=== PATIENT | female | born 1975 | race Caucasian/White ===

== ENCOUNTER 2017-07-09 07:48 | Inpatient (IN) | payer BC ==
--- NOTE | 2017-07-09 08:23 | RAD ---
AP CHEST: History: Chest pain. Comparison: None. FINDINGS: Lungs are clear. Cardiomediastinal silhouette is normal. No acute osseous abnormality is evident. IMPRESSION: No acute cardiopulmonary abnormality. POS: [facility]
[2017-07-09 08:26] LABS: #Basophils 0.1 thou/uL (0.0-0.2); #Eosinphils 0.4 thou/uL (0.0-0.7); #Lymphocytes 2.5 thou/uL (1.20-3.40); #Monocytes 0.5 thou/uL (0.11-0.59); #Neutrophils 4.6 thou/uL (1.40-6.50); %Basophils 1.7 % (0.0-1.0); %Eosinophils 5.2 % (0.0-10.0); %Lymphocytes 30.9 % (21.0-51.0); %Monocytes 6.5 % (0.0-10.0); %Neutrophils 55.7 % (42.0-75.0); Hemoglobin 14.1 g/dL (12.0-16.0); Mean Corpuscular HGB CONC 33.2 g/dL (32.0-36.0); Mean Corpuscular Hemoglobin 29.3 pg (27.0-31.0); Mean Corpuscular Volume 88.1 fl (81.0-99.0); Mean Platelet Volume 7.6 fL (7.4-10.4); Platelet Count 276 thou/uL (130-400); Red Blood Cell (RBC) Count 4.82 mill/uL (4.20-5.40); White Blood Cell (WBC) Count 8.2 thou/uL (4.8-10.8)
[2017-07-09 08:27] LABS: PTT 26.8 SEC (22.9-36.1); Prothrombin Time 12.9 SEC (12.0-14.7)
[2017-07-09 08:48] LABS: ALT (SGPT) 13 U/L (8-55); AST (SGOT) 10 U/L (5-34); Albumin 4.3 g/dL (3.5-5.0); Alkaline Phosphatase 47 U/L (40-150); Anion Gap 13 mmol/L (10-20); BUN (Urea Nitrogen) 15 mg/dL (7.0-18.7); Bilirubin, Total 0.5 mg/dL (0.2-1.2); CK (CPK) 69 U/L (29-168); Calc. Creatinine Clearance 0 mL/min (70-130); Calcium 9.5 mg/dL (7.8-10.44); Carbon Dioxide 23 mmol/L (22-29); Chloride 104 mmol/L (98-107); Estimated GFR-MDRD 82; Globulin 2.8 g/dL (2.4-3.5); Glucose 99 mg/dL (70-105); Lipase 14 U/L (8-78); Potassium 4.2 mmol/L (3.5-5.1); Protein, Total 7.1 g/dL (6.0-8.3); Sodium 136 mmol/L (136-145)
[2017-07-09 08:52] LABS: CKMB 0.5 ng/mL (0-6.6); Troponin I Less than 0.010 ng/mL (< 0.028)
[2017-07-09 11:54] LABS: Troponin I Less than 0.010 ng/mL (< 0.028)
--- NOTE | 2017-07-09 12:27 | HP ---
PRIMARY CARE PHYSICIAN: The patient is periodically following Dr. Aurelio Whitlock if needed. REASON FOR ADMISSION: Chest pain. HISTORY OF PRESENT ILLNESS: A 41-year-old female who has underlying history of coronary artery disea se. She was experiencing for the last 2-3 days indigestion that was keep getting during night time a fter food. She needs to burp and she was feeling heartburn sensation in her substernal area. She wa s taking over the counter medication without any significant relief. Last night, she was experiencin g similar symptoms, but when she woke up at that time she was feeling discomfort in between the shoul kaylene blades and subsequently when she was getting ready for work, she also experienced discomfort arou nd collarbone and left shoulder and that is why she was concerned about it and decided to come to the emergency room for evaluation. Initially, she went to work but as her symptoms continued to worsen that is why she was sent to the ER. The patient feels mild shortness of breath which is unusual for her. She denies any associated nause a, vomiting, dyspnea, dizziness, orthopnea, PND or leg swelling. She denies any exertion related sym ptoms. She describes intensity of current symptoms is about 4/10. The patient did not notice any aggravating or relieving factor. She denies any flu-like illness. Sh e denies any fever or chills. She denies any constipation, melena, hematochezia, abdominal pain, diarrhea, or UTI symptoms. ALLERGIES: No known drug allergies. CURRENT HOME MEDICATIONS: Unfortunately, the patient did not bring any medications with her at this point and she does not know which medicines she is currently taking so unable to review at this point , but we will review later on. REVIEW OF SYSTEMS: Please see my HPI for pertinent positives and negatives. All other review of sys tems reviewed and negative except as mentioned in the HPI. Constitutional: Weight loss or gain, ability to conduct usual activities. Skin: Rash, itching. Eyes: Double vision, pain. ENT/Mouth: Nose bleeding, neck stiffness, pain, tenderness. Cardiovascular: Palpitations, dyspnea on exertion, orthopnea. Respiratory: Shortness of breath, wheezing, cough, hemoptysis, fever or night sweats. Gastrointestinal: Poor appetite, abdominal pain, heartburn, nausea, vomiting, constipation, or diarrhea. Genitourinary: Urgency, frequency, dysuria, nocturia. Musculoskeletal: Pain, swelling. Neurologic/Psychiatric: Anxiety, depression. Allergy/Immunologic: Skin rash, bleeding tendency. PAST MEDICAL HISTORY: Morbid obesity, coronary artery disease, history of AR, hypertension, dyslipid emia. PAST PSYCHIATRIC HISTORY: Anxiety and depression. PAST SURGICAL HISTORY: D&C x2, cardiac catheterization with stent placement, bilateral ACL repair. FAMILY HISTORY: No strong family history of premature coronary artery disease, stroke or cancer. SOCIAL HISTORY: The patient lives at home. She is working. She denies any tobacco, alcohol or illi cit drug abuse. EMERGENCY ROOM COURSE: The patient is given aspirin 324 mg. PHYSICAL EXAMINATION: VITAL SIGNS: On arrival, blood pressure 169/110, pulse 93, respiratory rate 20, temperature 98.5, sa turation 100% on room air, weight 114.3 kilograms. GENERAL: The patient is currently alert, awake, no acute distress. HEAD: Normocephalic, atraumatic. EYES: Pupils round, reactive to light. Extraocular muscles intact. ENT: Oropharynx within normal limits. Moist mucous membranes. No oral lesions. No pharyngeal eryt kimi, no exudate. NECK: Supple, no JVD, no thyromegaly, no carotid bruit, no jugular venous distention. LUNGS: Clear to auscultation without any rhonchi or rales. CARDIAC: S1, S2 regular without any murmur. ABDOMEN: Obesity present. Bowel sounds present. Nontender, nondistended. No organomegaly, no mass , no suprapubic tenderness. BACK: Unremarkable, no CVA tenderness. EXTREMITIES: Upper extremity: Passive movements of all joints are normal. Lower extremities: No e jacques. Good peripheral pulsation. No calf tenderness. SKIN: No skin rash. HEMATOLOGIC: No lymphadenopathy. PSYCHIATRIC: Normal affect. NEUROLOGIC: Nonfocal examination. The patient moves all 4 limbs. Plantar bilateral flexor. PSYCHIATRIC: Normal affect. SIGNIFICANT LABORATORY DATA: EKG showing sinus tachycardia, LVH. Chest x-ray based on my review, no acute cardiopulmonary process. CBC: WBC 8.2, hemoglobin 14.1, pl atelet 276. INR 1.0, lipase 14, CK 69. Sodium 136, potassium 4.2, chloride 104, carbon dioxide 23, anion gap 13, BUN 15, creatinine 0.78, glucose 99, calcium 9.5. LFT: Protein 7.1, albumin 4.3, alkaline phosphatase 47, AST 15, ALT 13, CK-MB 0.5, troponin I less t johnson 0.010. ASSESSMENT AND PLAN: 1. Chest pain. The patient's chest pain description is atypical, most likely pointing towards a GI etiology rather than cardiac etiology. Her EKG is currently unremarkable and her cardiac enzymes are also negative. At this point, we will do 2 more cardiac enzymes and if cardiac enzymes continue to be negative, then we will try to do stress test. Given her obesity, we will try to do resting part t marc and stress for tomorrow. We will check lipid profile tomorrow morning. Meanwhile, we will cont inue with nitropatch q.8 hourly, aspirin 325 mg p.o. daily. We will monitor on telemetry floor for a ny arrhythmias. 2. Coronary artery disease. This patient has cardiac catheterization done by Dr. Doran in 2014 a nd showed 3 three-vessel coronary artery disease with systolic dysfunction. We will try to obtain al l her home medication and resume while in hospital as well. Currently, the patient will be on aspiri n and nitropatch q.8 hourly. We will check lipid profile for risk stratification. 3. Hypertension. As mentioned above, we will obtain her home medication and restart while in hospit al, currently on nitropatch and we will use p.r.n. hydralazine. 4. Dyslipidemia. Continue Lipitor 40 mg p.o. at bedtime and check lipid profile tomorrow morning. 5. Anxiety and depression. We will obtain the patient's home medication and restart while in hospit al. 6. Morbid rest, dietary education given, weight loss education given. Healthy lifestyle measures di scussed with the patient. 7. Deep venous thrombosis prophylaxis not needed because we are expecting discharge in 24 hours. 8. Gastrointestinal prophylaxis, Pepcid 20 mg p.o. b.i.d. 9. Code status: The patient is FULL CODE. The patient does not have any surrogate decision maker. Disposition plan based on stress test results likely within 24 hours. Plan of care discussed with th e patient in detail.
[2017-07-09] MEDS ORDERED: Ondansetron HCl/PF 4 MG/2 ML Vial IVP PRN (12:41)
[2017-07-09] MEDS ORDERED: Loperamide HCl 2 MG CAP PO PRN (12:41)
[2017-07-09] MEDS ORDERED: Senokot 8.6 MG TAB PO PRN (12:41)
[2017-07-09] MEDS ORDERED: Ondansetron ODT 4 MG TAB PO PRN (12:41)
[2017-07-09] MEDS ORDERED: Diabetic Tussin 200 MG/10 ML UDCUP PO PRN (12:41)
[2017-07-09] MEDS ORDERED: Nitroglycerin 0.4 MG TAB (25 Tab Bottle) SL PRN (12:41)
[2017-07-09] MEDS ORDERED: Chloraseptic Spray 180 ml Bottle PO PRN (12:41)
[2017-07-09] MEDS ORDERED: Eucerin (Mineral Oil/Petrolatum,White) 30 gm Jar TOP PRN (12:41)
[2017-07-09] MEDS ORDERED: hydrALAZINE 20 MG/ML VIAL SLOW IVP PRN (12:41)
[2017-07-09] MEDS ORDERED: Artificial Tears 18 DROP/0.9 ML EA EYE PRN (12:41)
[2017-07-09] MEDS ORDERED: Milk Of Magnesia 30 ML UDCUP PO PRN (12:41)
[2017-07-09] MEDS ORDERED: Sodium Chloride 0.65% Nasal 44 ML BOT EA NARE PRN (12:41)
[2017-07-09] MEDS ORDERED: Acetaminophen 325 MG TAB PO PRN (12:41)
[2017-07-09] MEDS ORDERED: Mag-Al 1200 mg/1200 mg/30 ML UDCUP PO PRN (12:41)
[2017-07-09] MEDS ORDERED: Loratadine 10 MG TAB PO PRN (12:41)
[2017-07-09] MEDS ORDERED: Zolpidem Tartrate 5 MG TAB PO PRN (12:41)
[2017-07-09 13:15] VITALS: BMI 45.3
[2017-07-09 14:40] LABS: Troponin I Less than 0.010 ng/mL (< 0.028)
[2017-07-09] MEDS: Sodium Chloride 0.9% 1,000 ML IV SCH (15:21)
[2017-07-09] MEDS: Nitroglycerin 2% Ointment 1 INCH/1 GM Packet TOP SCH ×2 (15:21→21:24)
[2017-07-09] MEDS: Atorvastatin Calcium 40 MG TAB PO SCH (20:07)
[2017-07-09] MEDS: Famotidine 20 MG TAB PO SCH (20:08)
[2017-07-09] MEDS: HYDROcodone/Acetaminophen 5/325 mg Tablet PO PRN (20:10)
[2017-07-10] MEDS: Nitroglycerin 2% Ointment 1 INCH/1 GM Packet TOP SCH ×3 (04:26→21:47)
[2017-07-10 06:09] LABS: Cardiac Risk 4.2 (Less than 4.5)
--- NOTE | 2017-07-10 09:55 | PDOC.PN ---
- Subjective Encounter Start Date: 07/10/17 Encounter Start Time: 07:10 -: old records requested/rev Patient seen and examined. No new complaints. No overnight events - Objective Resuscitation Status: Resuscitation Status FULL:Full Resuscitation MAR Reviewed: Yes Vital Signs & Weight: Vital Signs (12 hours) Temp Pulse Resp BP BP Pulse Ox 07/10/17 07:47 98.3 F 75 18 07/10/17 07:05 97.5 F L 66 16 137/72 97 07/10/17 04:04 98.3 F 75 18 127/71 98 Weight Weight 255 lb 12.8 oz I&O: 07/09/17 07/10/17 07/11/17 06:59 06:59 06:59 Intake Total 1102 Output Total 600 Balance 502 Result Diagrams: 07/09/17 08:13 07/09/17 08:13 EKG Reviewed by me: Yes (nsr) Phys Exam - Physical Examination Constitutional: NAD HEENT: PERRLA, moist MMs, sclera anicteric Neck: no JVD, supple Respiratory: no wheezing, no rales, no rhonchi Cardiovascular: RRR, no significant murmur, no rub Gastrointestinal: soft, non-tender, no distention, positive bowel sounds Musculoskeletal: no edema, pulses present Neurological: non-focal, normal sensation, moves all 4 limbs Psychiatric: normal affect, A&O x 3 Skin: no rash, normal turgor Dx/Plan (1) Chest pain Code(s): R07.9 - CHEST PAIN, UNSPECIFIED Status: Acute (2) Anxiety and depression Code(s): F41.8 - OTHER SPECIFIED ANXIETY DISORDERS Status: Chronic (3) CAD (coronary artery disease) Code(s): I25.10 - ATHSCL HEART DISEASE OF [place] CORONARY ARTERY W/O ANG PCTRS Status: Chronic (4) Dyslipidemia Code(s): E78.5 - HYPERLIPIDEMIA, UNSPECIFIED Status: Chronic (5) Hypertension Code(s): I10 - ESSENTIAL (PRIMARY) HYPERTENSION Status: Chronic (6) Morbid obesity with BMI of 45.0-49.9, adult Code(s): E66.01 - MORBID (SEVERE) OBESITY DUE TO EXCESS CALORIES; Z68.42 - BODY MASS INDEX (BMI) 45.0-49.9, ADULT Status: Chronic - Plan cont current plan of care * medication reviewed as below * symptomatic treatment * today stress test * if negative, will dc later today * will send meds to her pharmacy. Review of Systems - Review of Systems Eyes: negative: Pain, Vision Change, Conjunctivae Inflammation, Eyelid Inflammation, Redness, Other ENT: negative: Ear Pain, Ear Discharge, Nose Pain, Nose Discharge, Nose Congestion, Mouth Pain, Mouth Swelling, Throat Pain, Throat Swelling, Other Respiratory: negative: Cough, Dry, Shortness of Breath, Hemoptysis, SOB with Excertion, Pleuritic Pain, Sputum, Wheezing Cardiovascular: negative: chest pain, palpitations, orthopnea, paroxysmal nocturnal dyspnea, edema, light headedness, other Gastrointestinal: negative: Nausea, Vomiting, Abdominal Pain, Diarrhea, Constipation, Melena, Hematochezia, Other Genitourinary: negative: Dysuria, Frequency, Incontinence, Hematuria, Retention , Other Musculoskeletal: negative: Neck Pain, Shoulder Pain, Arm Pain, Back Pain, Hand Pain, Leg Pain, Foot Pain, Other - Medications/Allergies Allergies/Adverse Reactions: Allergies Allergy/AdvReac Type Severity Reaction Status Date / Time No Known Allergies Allergy Verified 07/09/17 14:15 Medications: Current Medications Acetaminophen (Tylenol) 650 mg PO Q4H PRN PRN Reason: Headache/Fever or Pain Last Admin: 07/09/17 15:20 Dose: 650 mg Hydrocodone Bitart/Acetaminophen ([place] 5/325) 1 tab PO Q4H PRN PRN Reason: Moderate Pain (4-6) Last Admin: 07/09/17 20:10 Dose: 1 tab Al Hydroxide/Mg Hydroxide (Maalox) 30 ml PO Q6H PRN PRN Reason: Heartburn or Indigestion Artificial Tears (Tears Naturale) 0 drop EA EYE PRN PRN PRN Reason: Dry Eyes Aspirin (Aspirin) 325 mg PO DAILY [facility] Atorvastatin Calcium (Lipitor) 40 mg PO HS [facility] Last Admin: 07/09/17 20:07 Dose: 40 mg Famotidine (Pepcid) 20 mg PO BID [facility] Last Admin: 07/09/17 20:08 Dose: 20 mg Guaifenesin (Robitussin Sf) 200 mg PO Q4H PRN PRN Reason: Cough Hydralazine HCl (Apresoline) 10 mg SLOW IVP Q4H PRN PRN Reason: Systolic BP > 180 Sodium Chloride (Normal Saline 0.9%) 1,000 mls @ 50 mls/hr IV .Q20H [facility] Last Admin: 07/09/17 15:21 Dose: 1,000 mls Loperamide HCl (Imodium) 2 mg PO PRN PRN PRN Reason: Diarrhea/Loose Stools Loratadine (Claritin) 10 mg PO DAILYPRN PRN PRN Reason: Sinus Symptoms Magnesium Hydroxide (Milk Of Magnesium) 30 ml PO DAILYPRN PRN PRN Reason: Constipation Mineral Oil/White Petrolatum (Eucerin Cream) 0 gm TOP BIDPRN PRN PRN Reason: Dry Skin Nitroglycerin (Nitrostat) 0.4 mg SL Q5MIN PRN PRN Reason: Chest Pain Nitroglycerin (Nitro-Bid 2% Ointment) 0.5 inch TOP Q8HR [facility] Last Admin: 07/10/17 04:26 Dose: Not Given Ondansetron HCl (Zofran Odt) 4 mg PO Q6H PRN PRN Reason: Nausea/Vomiting Ondansetron HCl (Zofran) 4 mg IVP Q6H PRN PRN Reason: Nausea/Vomiting Phenol (Chloraseptic [place] 180 Ml Bot) 0 ml PO PRN PRN PRN Reason: Sore Throat Senna (Senokot) 2 tab PO HSPRN PRN PRN Reason: Constipation Sodium Chloride (Sena Nasal [place] 0.65%) 0 ml EA NARE QIDPRN PRN PRN Reason: Nasal Congestion Zolpidem Tartrate (Ambien) 5 mg PO HSPRN PRN PRN Reason: Insomnia
--- NOTE | 2017-07-10 11:09 | DIS ---
DATE OF ADMISSION: 07/09/2017 DATE OF DISCHARGE: 07/10/2017 PRIMARY CARE PHYSICIAN: Dr. Aurelio Whitlock. DISCHARGE DISPOSITION: Home. PRIMARY DISCHARGE DIAGNOSIS: Chest pain, ruled out acute coronary syndrome. SECONDARY DISCHARGE DIAGNOSES: Anxiety, depression, coronary artery disease, dyslipidemia, hypertens ion, morbid obesity with BMI 45, gastroesophageal reflux disease. PRIMARY PROCEDURE/OPERATION: None. RADIOLOGICAL INVESTIGATION: Chest x-ray normal, stress test result pending. SIGNIFICANT LABORATORY DATA: CBC, normal coagulation profile normal, BMP and LFT normal. Cardiac en zymes negative. LDL 131. Lipase 14. DISCHARGE MEDICATIONS: Aspirin 81 mg p.o. daily, Lipitor 40 mg p.o. at bedtime, Coreg 6.25 mg p.o. b .i.d., lisinopril 5 mg p.o. daily, Protonix 40 mg p.o. daily. CONTRAINDICATIONS: None. CODE STATUS: FULL CODE. INPATIENT CONSULTANTS: None. ALLERGIES: No known drug allergy. DISCHARGE PLAN: Post hospital, the patient is advised to follow up with primary care physician. HOSPITAL COURSE: A 41-year-old female, who had previous history of [place] and required cardiac catheteri zation and she does have underlying coronary artery disease and systolic dysfunction based on cardiac catheterization report in 2015. She was not taking any medication. The patient was admitted for ch est pain. Her description of chest pain sounds like gastrointestinal etiology. For benefit of doubt , we observed this patient and we did serial cardiac enzymes that were negative. Telemetry remained unremarkable. While in hospital, she was asymptomatic. We did a stress test; stress test result is pending. If stress test is negative, then we will consider discharging her home later on today. The patient is seen and examined at bedside today. Please see my progress note from today for furthe r details. All new medication prescription sent to her pharmacy.
[2017-07-10] MEDS: Aspirin 325 MG TAB PO SCH (12:27)
[2017-07-10] MEDS: Famotidine 20 MG TAB PO SCH ×2 (12:27→20:01)
[2017-07-10] MEDS: Sodium Chloride 0.9% 1,000 ML IV SCH (12:28)
--- NOTE | 2017-07-10 14:21 | NM ---
NUCLEAR MEDICINE MYOCARDIAL PERFUSION: DATE: 07/10/17. COMPARISON: None. HISTORY: History of myocardial infarction with coronary artery disease and stent. TECHNIQUE: SPECT imaging of the left ventricular myocardium obtained during rest and stress following the intrav enous administration of 29.8 and 30.0 mCi Technetium 99m labeled sestamibi. FINDINGS: On the nonattenuation correction imaging, there is a very small reversible defect identified within t he anterior wall. This is less conspicuous on the attenuation corrected imaging. TID is 12. EDV is 115 mL and ESV is 51 mL with an LVEF of 56%. Left ventricular wall motion appears grossly unremarka ble. IMPRESSION: Subtle reversible defect is seen within the anterior wall of the left ventricular myocardium, more co nspicuous on nonattenuation corrected imaging. This suggests that this is, in part, on the basis of attenuation but a very small area of reversible defect on the bases of ischemia cannot be excluded. Clinical correlation is essential. POS: [facility]
[2017-07-10] MEDS ORDERED: Communication Order-Pharmacy FS SCH (15:45)
--- NOTE | 2017-07-10 16:06 | CON ---
DATE OF CONSULTATION: 07/10/2017 REASON FOR CONSULTATION: Chest pain, abnormal stress study. PRIMARY CARE PROVIDER: Dr. Velez. HISTORY OF PRESENT ILLNESS: Ms. Nicole is a 41-year-old woman who is a patient of Dr. Kenneth Doran. She has a history of CAD, status post stent placement after non-Q wave myocardial infarction while in [place] in her 30s. She also underwent coronary angiography [address] Kenneth Doran an d was found to have a patent stent in the LAD. She had moderate disease of the diagonal branch. Mos t recently, she states she awoke suddenly with chest discomfort. This then subsided. She then proce eded to work where she states her coworkers noted she looked ashen. Her blood pressure is markedly e levated at 180/114. She then proceeded to the emergency room. Her stress study did suggest an area of ischemia versus artifact noted to the anterior wall. She then has had recurrent pain while in the hospital. PAST MEDICAL HISTORY: As described above including obesity, hypertension, hyperlipidemia. PAST SURGICAL HISTORY: D&C, ACL repair. FAMILY HISTORY: Negative for CAD. SOCIAL HISTORY: No current tobacco or alcohol use. REVIEW OF SYSTEMS: Ten point review of systems reviewed and as above, otherwise negative. PHYSICAL EXAMINATION: GENERAL: Patient is a pleasant male/female who is in no acute distress. The patient appears his/her stated age. VITAL SIGNS: Blood pressure 160/72, pulse 90, temperature 98.7. NEUROLOGIC: The patient is alert and oriented times 3 with no focal neurologic deficits. HEENT: Sclerae without icterus. Mouth has moist mucous membranes with normal pallor. NECK: No JVD. Carotid upstroke brisk. No bruits bilaterally. LUNGS: Clear to auscultation with unlabored respirations. BACK: No scoliosis or kyphosis. CARDIAC: Regular rate and rhythm with normal S1 and S2. No S3 or S4 noted. No significant rubs, mu rmurs, thrills, or gallops noted throughout the precordium. PMI is not displaced. There is no artemio ternal heave. ABDOMEN: Soft, nontender, nondistended. No peritoneal signs present. No hepatosplenomegaly. No ab normal striae. EXTREMITIES: 2+ femoral and 2+ dorsalis pedis pulses. No cyanosis, clubbing, or edema. SKIN: No gross abnormalities. PERTINENT LABSORATORY DATA AND IMAGING: CK and troponin negative. EKG: Normal sinus rhythm with no ST wave changes suggesting ischemia. IMPRESSION: 1. Recurrent chest pain. 2. Previous myocardial infarction. 3. Status post stent placement. 4. Coronary artery disease. RECOMMENDATIONS: Ms. Nicole's EKG does not suggest acute infarct or unstable angina. Her enzymes are negative. I am concerned she had recurrent pain while in the hospital. I presented with 2 options. We would recommend medical therapy. She states, she has been off all of her medicines for the last 9 months. Her blood pressure may have precipitated her symptoms. I also discussed angiography. I sonya mehta discussed both options, she decided to proceed with coronary angiography. I discussed the proced ure in full detail with the patient. The risks of the procedure were also discussed. The risks of t he procedure include but are not limited to the following: , stroke, MD, need for emergency surgery, loss of limb, bleeding, and infection, as well as a re action to the dye causing kidney failure and needing long-term dialysis. I also discussed the risks of PCI to include all of the above including coronary dissection and perforation in addition to acute stent thrombosis and restenosis. All questions about the procedure were answered. Given the above, the patient agreed to proceed with coronary angiography and possible PCI. I also discussed drug-coa [place] and nondrug coated stent placement. She states she can comply with Plavix for at least 6 months. No back injections, surgeries planned or bleeding issues. Further recommendations per Dr. Kenneth rosas in a.m.
[2017-07-10] MEDS: HYDROcodone/Acetaminophen 5/325 mg Tablet PO PRN (20:01)
[2017-07-10] MEDS: Atorvastatin Calcium 40 MG TAB PO SCH (20:01)
[2017-07-11] MEDS: Nitroglycerin 2% Ointment 1 INCH/1 GM Packet TOP SCH (04:27)
[2017-07-11] MEDS: Famotidine 20 MG TAB PO SCH ×2 (05:00→21:22)
[2017-07-11] MEDS: Aspirin 325 MG TAB PO SCH (05:00)
[2017-07-11] MEDS ORDERED: Heparin 10,000 UNITS/1 ML VIAL ONE (06:38)
[2017-07-11] MEDS ORDERED: Lidocaine 1% (PF) 30 ML VIAL ONE ×2 (06:39→07:16)
[2017-07-11] MEDS ORDERED: Fentanyl 100 MCG/2 ML VIAL ONE (07:08)
[2017-07-11] MEDS ORDERED: Midazolam HCl 2 mg/2 ml Vial ONE (07:08)
[2017-07-11] MEDS ORDERED: Bivalirudin 250 MG VIAL ONE (07:32)
[2017-07-11] MEDS ORDERED: Nitroglycerin 100MG/250ML BOT 250 ML ONE (07:39)
[2017-07-11] MEDS ORDERED: TICAGRELOR 90 MG TABLET ONE (07:40)
[2017-07-11] MEDS ORDERED: clonazePAM 0.5 MG TAB PO PRN (08:19)
[2017-07-11] MEDS ORDERED: Sodium Chloride 0.9% 1,000 ML IV SCH (08:30)
--- NOTE | 2017-07-11 09:27 | PDOC.PN ---
- Subjective Encounter Start Date: 07/11/17 Encounter Start Time: 07:30 Patient seen and examined. No new complaints. No overnight events s/p cardiac cath and SONIA to mild LAD and RCA - Objective Resuscitation Status: Resuscitation Status FULL:Full Resuscitation MAR Reviewed: Yes Vital Signs & Weight: Vital Signs (12 hours) Temp Pulse Resp BP BP Pulse Ox 07/11/17 05:00 98.7 F 76 18 156/82 H 99 07/10/17 23:15 71 18 176/87 H 98 Weight Weight 255 lb 12.8 oz I&O: 07/10/17 07/11/17 07/12/17 06:59 06:59 06:59 Intake Total 1102 920 Output Total 600 650 Balance 502 270 Result Diagrams: 07/09/17 08:13 07/09/17 08:13 EKG Reviewed by me: Yes (nsr) Phys Exam - Physical Examination Constitutional: NAD HEENT: PERRLA, moist MMs, sclera anicteric Neck: no JVD, supple Respiratory: no wheezing, no rales, no rhonchi Cardiovascular: RRR, no significant murmur, no rub Gastrointestinal: soft, non-tender, no distention, positive bowel sounds Musculoskeletal: no edema, pulses present Neurological: non-focal, normal sensation, moves all 4 limbs Psychiatric: normal affect, A&O x 3 Skin: no rash, normal turgor Dx/Plan (1) Unstable angina Status: Acute Comment: s/p cardica cath and SONIA to mild LAD and RCA (2) Chest pain Code(s): R07.9 - CHEST PAIN, UNSPECIFIED Status: Acute (3) Anxiety and depression Code(s): F41.8 - OTHER SPECIFIED ANXIETY DISORDERS Status: Chronic (4) CAD (coronary artery disease) Code(s): I25.10 - ATHSCL HEART DISEASE OF [place] CORONARY ARTERY W/O ANG PCTRS Status: Chronic (5) Dyslipidemia Code(s): E78.5 - HYPERLIPIDEMIA, UNSPECIFIED Status: Chronic (6) Hypertension Code(s): I10 - ESSENTIAL (PRIMARY) HYPERTENSION Status: Chronic (7) Morbid obesity with BMI of 45.0-49.9, adult Code(s): E66.01 - MORBID (SEVERE) OBESITY DUE TO EXCESS CALORIES; Z68.42 - BODY MASS INDEX (BMI) 45.0-49.9, ADULT Status: Chronic - Plan cont current plan of care * will observe one more day after SONIA to 2 vessel (mild LAD and RCA) * change to inpt status * medication reviewed as below * symptomatic treatment * lipitor 80 mg, brilinta started * currently on optimum medical therapy * will consider discharge tomorrow if stable. Review of Systems - Review of Systems Eyes: negative: Pain, Vision Change, Conjunctivae Inflammation, Eyelid Inflammation, Redness, Other ENT: negative: Ear Pain, Ear Discharge, Nose Pain, Nose Discharge, Nose Congestion, Mouth Pain, Mouth Swelling, Throat Pain, Throat Swelling, Other Respiratory: negative: Cough, Dry, Shortness of Breath, Hemoptysis, SOB with Excertion, Pleuritic Pain, Sputum, Wheezing Cardiovascular: negative: chest pain, palpitations, orthopnea, paroxysmal nocturnal dyspnea, edema, light headedness, other Gastrointestinal: negative: Nausea, Vomiting, Abdominal Pain, Diarrhea, Constipation, Melena, Hematochezia, Other Genitourinary: negative: Dysuria, Frequency, Incontinence, Hematuria, Retention , Other Musculoskeletal: negative: Neck Pain, Shoulder Pain, Arm Pain, Back Pain, Hand Pain, Leg Pain, Foot Pain, Other Skin: negative: Rash, Lesions, Franky, Bruising, Other - Medications/Allergies Allergies/Adverse Reactions: Allergies Allergy/AdvReac Type Severity Reaction Status Date / Time No Known Allergies Allergy Verified 07/09/17 14:15 Medications: Current Medications Acetaminophen (Tylenol) 650 mg PO Q4H PRN PRN Reason: Headache/Fever or Pain Last Admin: 07/09/17 15:20 Dose: 650 mg Hydrocodone Bitart/Acetaminophen ([place] 5/325) 1 tab PO Q4H PRN PRN Reason: Moderate Pain (4-6) Last Admin: 07/10/17 20:01 Dose: 1 tab Al Hydroxide/Mg Hydroxide (Maalox) 30 ml PO Q6H PRN PRN Reason: Heartburn or Indigestion Artificial Tears (Tears Naturale) 0 drop EA EYE PRN PRN PRN Reason: Dry Eyes Aspirin (Ecotrin) 81 mg PO DAILY ALANA Atorvastatin Calcium (Lipitor) 80 mg PO HS ALANA Clonazepam (Klonopin) 1 mg PO HS PRN PRN Reason: Insomnia Stop: 07/16/17 08:20 Escitalopram Oxalate (Lexapro) 20 mg PO DAILY ALANA Famotidine (Pepcid) 20 mg PO BID [facility] Last Admin: 07/11/17 05:00 Dose: 20 mg Guaifenesin (Robitussin Sf) 200 mg PO Q4H PRN PRN Reason: Cough Hydralazine HCl (Apresoline) 10 mg SLOW IVP Q4H PRN PRN Reason: Systolic BP > 180 Sodium Chloride (Normal Saline 0.9%) 1,000 mls @ 125 mls/hr IV .Q8H [facility] Stop: 07/11/17 14:30 Loperamide HCl (Imodium) 2 mg PO PRN PRN PRN Reason: Diarrhea/Loose Stools Loratadine (Claritin) 10 mg PO DAILYPRN PRN PRN Reason: Sinus Symptoms Losartan Potassium (Cozaar) 50 mg PO DAILY [facility] Magnesium Hydroxide (Milk Of Magnesium) 30 ml PO DAILYPRN PRN PRN Reason: Constipation Metoprolol Succinate (Toprol Xl) 25 mg PO DAILY [facility] Mineral Oil/White Petrolatum (Eucerin Cream) 0 gm TOP BIDPRN PRN PRN Reason: Dry Skin Miscellaneous Information (Communication Order-Pharmacy) 0 each FS ONE [facility] Stop: 07/11/17 15:46 Nitroglycerin (Nitrostat) 0.4 mg SL Q5MIN PRN PRN Reason: Chest Pain Phenol (Chloraseptic [place] 180 Ml Bot) 0 ml PO PRN PRN PRN Reason: Sore Throat Senna (Senokot) 2 tab PO HSPRN PRN PRN Reason: Constipation Sodium Chloride ([place] Nasal [place] 0.65%) 0 ml EA NARE QIDPRN PRN PRN Reason: Nasal Congestion Sodium Chloride (Flush - Normal Saline) 10 ml IVF Q12HR [facility] Sodium Chloride (Flush - Normal Saline) 10 ml IVF PRN PRN PRN Reason: Saline Flush Ticagrelor (Brilinta) 90 mg PO BID [facility] Zolpidem Tartrate (Ambien) 5 mg PO HSPRN PRN PRN Reason: Insomnia
[2017-07-11] MEDS ORDERED: Iopamidol 370 76% 50 ML VIAL FS ONE (12:28)
[2017-07-11] MEDS ORDERED: Iopamidol 370 76% 100 ML VIAL ONE (12:28)
[2017-07-11] MEDS ORDERED: HYDROcodone/Acetaminophen 5/325 mg Tablet ONE (12:42)
[2017-07-11] MEDS: HYDROcodone/Acetaminophen 5/325 mg Tablet PO PRN ×2 (16:28→21:33)
--- NOTE | 2017-07-11 16:37 | EKG ---
Test Reason : S/P CATH Blood Pressure : / mmHG Vent. Rate : 083 BPM Atrial Rate : 083 BPM P-R Int : 128 ms QRS Dur : 086 ms QT Int : 386 ms P-R-T Axes : 032 022 017 degrees QTc Int : 453 ms Normal sinus rhythm Normal ECG When compared with ECG of 09-JUL-2017 07:50, (Unconfirmed) No significant change was found Confirmed by DR. Sondra BOYLE ([id number]) on 07/11/2017 4:37:16 PM Referred By: WATSON Confirmed By:DR. Sondra BOYLE
[2017-07-11] MEDS: Losartan 25 MG TAB PO SCH (16:40)
[2017-07-11] MEDS: Aspirin 81 mg Enteric Coated Tablet PO SCH (16:40)
[2017-07-11] MEDS: Escitalopram Oxalate 20 mg Tablet PO SCH (16:40)
--- NOTE | 2017-07-11 19:01 | CCL ---
PROCEDURE: 1. Left heart catheterization. 2. Left coronary arteriography. 3. Left ventriculography. 4. Drug-eluting stent placed in the mid left anterior descending and in the mid right coronary artery. INDICATION: Abnormal Cardiolite and acute coronary syndrome. The patient was brought to cardiac manager labor relations and right groin was prepped and draped. The right groin was infiltrated with 1% Lidocaine. Ultrasound was used and a 6 [place] sheath placed into the right femoral artery. Heparin 3000 units given. A 6 [place] angulated pigtail was inserted and pressure obtained. Left ventriculogram was performed using 30 mL of contrast at 12 mL per second in an MARSH 30 degree projection. Pressure obtained and pigtail was removed. A 6 [place] Sonam left 4 followed by 6 [place] Sonam right 4 was used for coronary arteriography. Angiomax bolus and drip were started.. Brilinta 180 mg was given p.o. A 6 [place] left 4 guide catheter was inserted. A floppy choice wire was advanced into the apical LAD. Nitroglycerin 200 mcg was given. Synergy 2.25 x 12 mm stent was then positioned and deployed. Proximal to the stent there appeared to be a significant amount of plaque and so the decision ultimately was made to place another Synergy 2.25 x 20 mm proximal to and overlapping the mid LAD stent. Nitroglycerin 200 mcg was given. Final result was excellent. A 6 [place] Sonam right 4 guide catheter was inserted and a floppy choice wire was advanced into the distal right coronary artery. Intracoronary nitroglycerin 200 mcg given. Synergy 4.0 x 20 mm stent was positioned and deployed. The mid portion of the stent was postdilated with Emerge NC 4.5 mm balloon. Final result was excellent. Sheaths were sutured in place. Angiomax was discontinued. The patient was transferred to the PCU. RESULTS OF PRESSURES: Aorta 157/89, mean of 119. Left ventricle 163/15. LEFT VENTRICULOGRAM: There was normal left ventricular contractility with ejection fraction of 50-55% . CORONARY ARTERIOGRAPHY: 1. Left main had a 20% proximal stenosis. 2. The LAD had continued good proximal stent results. In the mid LAD there was a 90% lesion. There was a 50% lesion in the first diagonal at a bifurcation. 3. Circumflex continued to have good proximal circumflex stent results. \ 4. The ramus had a 30% stenosis. 5. The right coronary artery had an 80% mid stenosis. INTERVENTION RESULTS: The initial mid LAD lesion was 90% and final lesion was 0%. In the mid right coronary artery, the initial lesion was 80% and final lesion was 0%. IMPRESSION: 1. Three-vessel coronary artery disease. 2. Normal left ventricular function. 3. Successful drug-eluting stent placement in the mid LAD and mid right coronary artery. MTDD
[2017-07-11] MEDS ORDERED: Atorvastatin Calcium 40 MG TAB PO SCH (21:00)
[2017-07-11] MEDS: TICAGRELOR 90 MG TABLET PO SCH (21:21)
[2017-07-12 05:51] LABS: #Basophils 0.1 thou/uL (0.0-0.2); #Eosinphils 0.4 thou/uL (0.0-0.7); #Lymphocytes 3.1 thou/uL (1.20-3.40); #Monocytes 0.7 thou/uL (0.11-0.59); #Neutrophils 5.9 thou/uL (1.40-6.50); %Basophils 0.7 % (0.0-1.0); %Eosinophils 3.6 % (0.0-10.0); %Lymphocytes 30.4 % (21.0-51.0); %Monocytes 6.7 % (0.0-10.0); %Neutrophils 58.7 % (42.0-75.0); Hemoglobin 13.3 g/dL (12.0-16.0); Mean Corpuscular HGB CONC 31.8 g/dL (32.0-36.0); Mean Corpuscular Hemoglobin 29.2 pg (27.0-31.0); Mean Corpuscular Volume 91.9 fl (81.0-99.0); Mean Platelet Volume 8.1 fL (7.4-10.4); Platelet Count 251 thou/uL (130-400); Red Blood Cell (RBC) Count 4.54 mill/uL (4.20-5.40); White Blood Cell (WBC) Count 10.1 thou/uL (4.8-10.8)
[2017-07-12 06:05] LABS: ALT (SGPT) 10 U/L (8-55); AST (SGOT) 11 U/L (5-34); Albumin 3.9 g/dL (3.5-5.0); Alkaline Phosphatase 42 U/L (40-150); Anion Gap 12 mmol/L (10-20); BUN (Urea Nitrogen) 12 mg/dL (7.0-18.7); Bilirubin, Total 0.7 mg/dL (0.2-1.2); Calc. Creatinine Clearance 188 mL/min (70-130); Calcium 9.1 mg/dL (7.8-10.44); Carbon Dioxide 24 mmol/L (22-29); Chloride 106 mmol/L (98-107); Estimated GFR-MDRD 88; Globulin 2.6 g/dL (2.4-3.5); Glucose 95 mg/dL (70-105); Potassium 3.9 mmol/L (3.5-5.1); Protein, Total 6.5 g/dL (6.0-8.3); Sodium 138 mmol/L (136-145)
[2017-07-12] MEDS: TICAGRELOR 90 MG TABLET PO SCH (09:18)
[2017-07-12] MEDS: Losartan 25 MG TAB PO SCH (09:18)
[2017-07-12] MEDS: Famotidine 20 MG TAB PO SCH (09:19)
[2017-07-12] MEDS: Escitalopram Oxalate 20 mg Tablet PO SCH (09:19)
[2017-07-12] MEDS: Aspirin 81 mg Enteric Coated Tablet PO SCH (09:19)
[2017-07-12 18:47] VITALS: BP 164/88; TEMP 98.1
--- NOTE | 2017-07-13 08:09 | EKG ---
Test Reason : Blood Pressure : / mmHG Vent. Rate : 073 BPM Atrial Rate : 073 BPM P-R Int : 120 ms QRS Dur : 076 ms QT Int : 364 ms P-R-T Axes : 052 006 010 degrees QTc Int : 401 ms Normal sinus rhythm Minimal voltage criteria for LVH, may be normal variant Borderline ECG When compared with ECG of 11-JUL-2017 09:22, QT has shortened Confirmed by DR. Sondra BOYLE ([id number]) on 07/13/2017 8:09:27 AM Referred By: WATSON Confirmed By:DR. Sondra BOYLE
--- NOTE | 2017-07-13 15:33 | EKG ---
Test Reason : CP Blood Pressure : / mmHG Vent. Rate : 105 BPM Atrial Rate : 105 BPM P-R Int : 120 ms QRS Dur : 074 ms QT Int : 332 ms P-R-T Axes : 021 005 008 degrees QTc Int : 438 ms Sinus tachycardia Minimal voltage criteria for LVH, may be normal variant Borderline ECG Confirmed by ANJU LIZ ([id number]), design editor NICKOLAS BO ([id number]) on 07/13/2017 3:33:12 PM Referred By: Confirmed By:ANJU LIZ
--- NOTE | 2017-07-13 16:41 | DIS ---
DATE OF DISCHARGE: 07/12/2017 DISCHARGE DISPOSITION: Home. FOLLOWUP: 1. Follow up with primary care physician, Dr. Aurelio Whitlock in 1 week. 2. Follow up with Dr. Kenneth Doran on 08/16/2017 at 12:15 p.m. 3. Outpatient cardiac rehabilitation. ALLERGIES: No known drug allergies. The patient was seen and examined on the day of discharge. Denies any new complaints, no chest pain, shortness of breath, palpitations. DISCHARGE MEDICATIONS: Aspirin 81 mg daily, Lipitor 80 mg at bedtime, losartan 50 mg daily, Toprol-X L 25 mg daily, sublingual nitroglycerin as needed, and Brilinta 90 mg b.i.d. INPATIENT CONSULTANTS: Cardiology, Dr. Kennteh Doran. INPATIENT PROCEDURES: On 07/11/2017, patient underwent cardiac catheterization that showed 3-vessel disease. She had a drug-eluting stent placement in mid LAD and mid right coronary artery. Left main had 20% stenosis. LAD had 90% stenosis and 50% at the first diagonal. Right coronary had 80% mid s tenosis. BRIEF HOSPITAL COURSE: Patient is a 41-year-old female with morbid obesity, coronary artery disease, hypertension, and dyslipidemia, who presented to the hospital with chest discomfort. Please refer t o the history and physical dated 07/09/2017 for further details. The patient was admitted to the hospital with a diagnosis of chest discomfort, rule out acute coronar y syndrome. Her serial cardiac enzymes were normal. She underwent a Cardiolite stress test that was abnormal. For this reason, Cardiology was consulted. She underwent cardiac catheterization with st ent placement as discussed above. She was extensively counseled on risk factor modification. She wi ll follow up with Cardiology as outpatient. She was counseled on medication compliance. FINAL DIAGNOSES: 1. Chest discomfort consistent with unstable angina. 2. Anxiety, depression. 3. Coronary artery disease, status post stent placement, stents placement as discussed above. 4. Dyslipidemia. 5. Hypertension. 6. Morbid obesity with a BMI of 44. 7. Chronic kidney disease, stage 2. SIGNIFICANT LABORATORY DATA: Creatinine 0.73, BUN 12. Fasting lipid profile showed cholesterol of 1 98, LDL 131, triglyceride 100, HDL of 47. TSH was 2.0. Plan of care was discussed with the patient. She stated understanding.
== END 2017-07-12 15:31 | disposition home or self-care (01) | DRG 247 ==
LOC: ERS 07:48 → 2SW 10:29 → OBSVTOIN 10:29 → 2NO 07-11 14:33
PROVIDERS: ADMIT Internal Medicine; ATTEND Internal Medicine
PROC: 4A023N7 Measurement of Cardiac Sampling and Pressure, Left Heart, Percutaneous Approach (ICD-10-PCS; principal; 2017-07-11)
PROC: 027135Z Dilation of Coronary Artery, Two Arteries with Two Drug-eluting Intraluminal Devices, Percutaneous Approach (ICD-10-PCS; 2017-07-11)
PROC: B2111ZZ Fluoroscopy of Multiple Coronary Arteries using Low Osmolar Contrast (ICD-10-PCS; 2017-07-11)
PROC: B2151ZZ Fluoroscopy of Left Heart using Low Osmolar Contrast (ICD-10-PCS; 2017-07-11)
DX: I25.110 Atherosclerotic heart disease of native coronary artery with unstable angina pectoris (principal); E66.01 Morbid (severe) obesity due to excess calories; Z68.41 Body mass index [BMI] 40.0-44.9, adult; I25.2 Old myocardial infarction; F41.9 Anxiety disorder, unspecified; F32.9 Major depressive disorder, single episode, unspecified; Z95.5 Presence of coronary angioplasty implant and graft; I12.9 Hypertensive chronic kidney disease with stage 1 through stage 4 chronic kidney disease, or unspecified chronic kidney disease; N18.2 Chronic kidney disease, stage 2 (mild); K21.9 Gastro-esophageal reflux disease without esophagitis; Z79.82 Long term (current) use of aspirin; E78.00 Pure hypercholesterolemia, unspecified; I87.2 Venous insufficiency (chronic) (peripheral)
CPT/HCPCS: 36415; 71045; 76942; 78452; 80053; 80061; 82550; 82553; 83690; 84443; 84484; 85025; 85347; 85610; 85730; 92928; 92929; 93005; 93010; 93017; 93458; 93798; 94760; 99152; 99153; A4216; A9500; C1769; C1874; C1887; C9600; C9601; J0583; J1644; J2001; J2250; J3010